=== PATIENT | female | born 1980 | race Caucasian/White ===

== ENCOUNTER 2021-05-06 09:27 | Emergency (ER) | payer BC, SELFPAY ==
[2021-05-06 09:28] VITALS: BP 142/85; PULSE 65; TEMP 36.5; O2SAT 100
[2021-05-06 09:36] VITALS: BP 142/85; PULSE 64
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
[2021-05-06] MEDS: Lidocaine 2% Viscous 15 ML CUP ×2 (09:59→11:21)
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
[2021-05-06] MEDS: Ibuprofen 800 MG TAB (10:31)
[2021-05-06 10:39] VITALS: BP 137/84; PULSE 50; PULSE 63; RESP 16; O2SAT 98
[2021-05-06 11:22] VITALS: BP 137/84; PULSE 63; RESP 16; O2SAT 98
== END 2021-05-06 11:16 | disposition home or self-care (01) ==
PROVIDERS: Emergency Provider Physician Assistant; PCP Family Medicine
DX: S00.11XA Contusion of right eyelid and periocular area, initial encounter (principal); S20.212A Contusion of left front wall of thorax, initial encounter; S60.211A Contusion of right wrist, initial encounter; S80.11XA Contusion of right lower leg, initial encounter; S01.511A Laceration without foreign body of lip, initial encounter; V47.5XXA Car driver injured in collision with fixed or stationary object in traffic accident, initial encounter
CPT/HCPCS: 99284; 71046; 73590

== ENCOUNTER 2021-07-29 01:16 | Emergency (ER) | payer BC, SELFPAY ==
--- NOTE | 2021-07-29 01:32 | NUR.NOTE ---
Pt decided to leave during triage. Pt c/o that she did not like the triage questions and she had never been treated like this Pts behavior was erratic she was swinging her arms and legs all over the place. She needed to hold on to her friend just to ambulate to the room. When nurse inquired as to why her extremities were so spastic pt became agitated and requested to leave.
== END 2021-07-29 01:32 ==
LOC: ER 01:30
PROVIDERS: PCP Family Medicine
DX: Z53.21 Procedure and treatment not carried out due to patient leaving prior to being seen by health care provider (principal)